=== PATIENT | female | born 1990 | race Caucasian/White ===

== ENCOUNTER 2019-09-28 11:02 | Outpatient (CLI) | payer OTHER ==
--- NOTE | 2019-09-28 22:01 | RAD ---
LEFT TOES: 09/28/19 No acute fracture was appreciated. In particularly, the second toe appeared intact. There is a jeremie of bone just medial to the IP joint of the great toe, but this is more likely due to an old injury th an a recent one. All other toes appeared intact. IMPRESSION: No definite acute finding. POS: HOME
== END 2019-09-28 11:03 | disposition home or self-care (01) ==
LOC: BURRAD 11:02
PROVIDERS: ATTEND Family Medicine
DX: M79.672 Pain in left foot (principal)

== ENCOUNTER 2024-03-08 10:07 | Outpatient (CLI) | payer OTHER | END 2024-03-08 10:08 | disposition home or self-care (01) | LOC: BURRAD 10:07 | PROVIDERS: ATTEND Nurse Practitioner Family | DX: J18.9 Pneumonia, unspecified organism (principal) | CPT/HCPCS: 71046 ==

== ENCOUNTER 2025-03-05 09:49 | Emergency (ER) | payer OTHER, SELFPAY ==
[2025-03-05 10:18] LABS: BHCG - Serum Negative (NEGATIVE); Pregs Control Background? CLEAR/WHITE (CLR/WHITE); Pregs Control Bar Appear? YES (CONTROL BAR)
[2025-03-05 10:38] LABS: Hematocrit 41.3 % (36.0-47.0); Hemoglobin 14.6 g/dL (12.0-16.0); Mean Corpuscular Hemoglobin 31.0 pg (27.0-31.0); Mean Corpuscular Volume 87.8 fl (78.0-98.0); Red Blood Cell (RBC) Count 4.70 mill/uL (4.20-5.40); White Blood Cell (WBC) Count 7.1 10x3/uL (4.8-10.8)
[2025-03-05 10:45] LABS: Troponin I Less than 0.010 ng/mL (< 0.028)
[2025-03-05 10:46] LABS: Anion Gap 15 mmol/L (10-20); BUN (Urea Nitrogen) 11 mg/dL (7.0-18.7); Calc. Creatinine Clearance 0 mL/min (70-130); Carbon Dioxide 19 mmol/L (22-29); Chloride 107 mmol/L (98-107); Glucose 111 mg/dL (70-105); Potassium 3.6 mmol/L (3.5-5.1); Sodium 137 mmol/L (136-145)
[2025-03-05 10:47] LABS: Albumin 4.4 g/dL (3.1-4.5); Bilirubin, Total 0.5 mg/dL (0.3-1.2); Calcium 9.1 mg/dL (7.6-10.4); Globulin 2.8 g/dL (2.4-3.5)
[2025-03-05 10:48] LABS: ALT (SGPT) 12 U/L (Less than 34); AST (SGOT) 19 U/L (11-34); Alkaline Phosphatase 40 U/L (40-110); Lipase 33 U/L (8-78); Magnesium 1.7 mg/dL (1.6-2.6)
[2025-03-05 10:56] LABS: MDiff Complete? YES; Manual Diff?? YES; Platelet Count 42 10x3/uL (130-400)
[2025-03-05 11:24] LABS: #Basophils 0.2 thou/uL (0.0-0.2); #Eosinophils 0.3 thou/uL (0.0-0.7); #Lymphocytes 1.3 thou/uL (1.20-3.40); #Monocytes 0.6 thou/uL (0.11-0.59); #Neutrophils 7.4 thou/uL (1.40-6.50); %Basophils 1.6 % (0.0-1.0); %Eosinophils 3.4 % (0.0-10.0); %Lymphocytes 13.0 % (21.0-51.0); %Monocytes 6.2 % (0.0-10.0); %Neutrophils 75.8 % (42.0-75.0); Hematocrit 36.4 % (36.0-47.0); Hemoglobin 12.8 g/dL (12.0-16.0); Mean Corpuscular Hemoglobin 31.1 pg (27.0-31.0); Mean Corpuscular Volume 88.4 fl (78.0-98.0); Platelet Count 242 10x3/uL (130-400); Red Blood Cell (RBC) Count 4.12 mill/uL (4.20-5.40); White Blood Cell (WBC) Count 9.7 10x3/uL (4.8-10.8)
[2025-03-05 11:27] LABS: MDiff Complete? YES
[2025-03-05 12:19] LABS: Glucose, Urine (Dipstick) Negative (Negative); Leukocyte Negative (Negative); Protein, Urine (Dipstick) Negative (Neg-Trace); Specific Gravity, Urine Less than 1.005 (1.005-1.030)
[2025-03-05 12:20] LABS: Acetaminophen Less than 10 mcg/mL (Less than 10); Salicylate Less than 8.0 mg/dL (Less than 8.0)
[2025-03-05 12:23] LABS: Cocaine Metabolite Screen Negative (Negative); THC/Cannabinoid Screen Negative (Negative); Tricyclic Screen Negative (Negative)
[2025-03-05 12:25] LABS: Bacteria/HPF 1+ HPF (None Seen); CAUTI Indications for Culture Alt mental st,lethar; RBC/HPF None Seen HPF (0-3); WBC/HPF None Seen HPF (0-3)
[2025-03-05 12:26] LABS: Urine Culture Reflex No No
== END 2025-03-05 14:14 | disposition short-term general hospital (02) ==
LOC: BURERS 09:49
DX: I49.9 Cardiac arrhythmia, unspecified (principal); M26.609 Unspecified temporomandibular joint disorder, unspecified side
CPT/HCPCS: 36415; 71045; 80053; 80306; 80307; 81001; 83690; 83735; 84443; 84484; 84703; 85025; 85379; 93005; 94760